=== PATIENT | male | born 1995 | race Two or more races ===

== ENCOUNTER 2024-09-13 08:06 | Outpatient (RCR) | payer SELFPAY ==
--- NOTE | 2024-09-13 08:39 | PC.NURSE ---
PHP staff Latia assessed Marino this morning for PHP LOC. She reports he is severely depressed, disclosed HI towards former partner and SI with plan to stab himself. There is an ongoing court issues and there is restraining orders on both he and his partner. He is agreeable to getting evaluated by crisis. Latia is currently escorting Marino to [facility] for evaluation. Candis RN in the POD is aware. Jenni from the Care Team is aware.
--- NOTE | 2024-09-13 09:46 | HO.PHP ---
This literary writer met with the patient today 09/13/2024 for the purpose of completing the intake assessment for PHP treatment. The patient reports experiencing severe depression and anxiety since . During the intake,the patient disclosed that he has been experiencing suicidal ideation,with a plan but no intent,he also disclosed homicidal ideation with a plan but no intent towards his former partner who he has had ongoing legal issues,restraining orders since May 2024. We discussed this at length,this literary writer stated to the patient that this literary writer thinks he is at high risk and recommend a crisis evaluation.The patient agreed to have a crisis evaluation. This literary writer discussed this patient with the PHP RN,she contacted the ED to discuss this patient and to inform them he will be coming in for a crisis evaluation. This literary writer walked the patient to the [facility] for a crisis evaluation. [facility]
== END 2024-09-13 08:47 | disposition home or self-care (01) ==
LOC: HO.PHPA 08:06
PROVIDERS: Visit Provider Psychiatry & Neurology Psychiatry
DX: F32.A Depression, unspecified (principal)

== ENCOUNTER 2024-09-13 08:45 | Inpatient (IN) | payer OTHER, SELFPAY ==
[2024-09-13 08:49] VITALS: BP 131/75; PULSE 88; RESP 16; TEMP 36.6; O2SAT 100; BMI 26.0
--- NOTE | 2024-09-13 09:13 | ED_ITS ---
HPI - General Adult General Chief complaint: Psychiatric Symptoms Stated complaint: Crisis Time Seen by Provider: 09/13/24 09:13 Source: patient Mode of arrival: ambulatory Limitations: no limitations History of Present Illness ED Provider: Karen Calzada PA-C HPI narrative: Patient is a 29 year old assigned male at with a history of depression presenting to the emergency department today with increased suicidal ideation. Patient states that he has been feeling much more suicidal over the last few days. Patient states that he wanted to do a partial program but when he told them he was feeling suicidal, they had him come here. Patient denies any dizziness, lightheadedness, abdominal pain, nausea, vomiting, fever, chills, blurry vision, double vision, loss of vision, chest pain, difficulty breathing, shortness of breath, back pain, night sweats, pain with urination, increased urinary frequency, increased urinary urgency, blood in his urine or stool, syncope or a near syncopal episode, recent trauma or falls, bowel incontinence, bladder incontinence, or any other complaints at this time. Relieving factors: none Exacerbating factors: none Associated symptoms: denies other symptoms Treatments prior to arrival: none Related Data Home Medications ?Medication ?Instructions ?Recorded ?Confirmed No Known Home Meds 09/13/24 09/13/24 Allergies Allergy/AdvReac Type Severity Reaction Status Date / Time No Known Allergies Allergy Verified 09/13/24 08:49 Review of Systems 2 Constitutional: Constitutional: Reports no additional constitutional complaints, Denies chills, Denies fever(s) and Denies night sweats Eyes: Eyes: Reports no additional eye complaints, Denies blurry vision, Denies change in vision, Denies diplopia, Denies eye discharge, Denies loss of vision and Denies eye pain ENT: Denies dizziness Cardiovascular: Cardiovascular: Reports no additional cardiovascular complaints, Denies chest pain, Denies lightheadedness, Denies Loss of Consciousness and Denies dyspnea Respiratory: Respiratory: Reports no additional respiratory complaints and Denies dyspnea Gastrointestinal: Gastrointestinal: Reports no additional gastrointestinal complaints, Denies abdominal pain, Denies melena, Denies hematochezia, Denies change in bowel habits and Denies change in stool character Genitourinary: Genitourinary: Reports no additional male genitourinary complaints, Denies hematuria, Denies oliguria, Denies difficulty urinating, Denies dysuria, Denies urinary frequency, Denies urinary hesitancy, Denies urinary incontinence and Denies urinary urgency Musculoskeletal: Musculoskeletal: Reports no additional musculoskeletal complaints, Denies numbness and Denies tingling Neurologic: Denies dizziness, Denies loss of vision, Denies numbness and Denies tingling Psychiatric: Psychiatric: Reports no additional psychiatric complaints and Reports suicidal ideation Endocrine: Endocrine: Reports no additional endocrine complaints Hematologic/Lymphatic: Hematologic/Lymphatic: Reports no additional hematologic/lymphatic complaints Allergic/Immunologic: Allergic/Immunologic: Reports no additional allergic/immunologic complaints [facility] Past Medical History Attestation statement: The following information was validated with the patient. Source: old records reviewed and nursing notes reviewed Social History Social History Alcohol intake: current Alcohol intake frequency: holidays/special occasions only Smoked in Last 30 Days: Yes Use of substances other than those prescribed or required for medical reasons: No Advance Directives: No Advance Directives Information Provided: No Do you have a plan to hurt others: Vague Physical Exam ED Vital Signs: Vital Signs - 24 hr 09/13/24 08:49 09/13/24 09:18 Temperature 97.8 F Pulse Rate 88 Respiratory Rate 16 16 Blood Pressure 131/75 Pulse Oximetry 100 Oxygen Delivery Method Room Air BMI result Body Mass Index 26.0 Const General: cooperative, no acute distress, alert and awake Nutritional Appearance: well nourished Orientation/consciousness: patient oriented x3 Limitations: no limitations HENMT Head: Yes normal to inspection and Yes atraumatic Ears: hearing grossly normal bilaterally and external ears normal General nose exam: Normal external nose present, no nasal discharge noted and no epistaxis Face and sinus: Yes normal facial exam, No abrasion and No laceration Mouth: Normal oral and palatal mucosa present, no drooling and no muffled voice Eyes General: appearance normal, both eyes and all related structures Periorbital: periorbital findings normal Eyelids: Yes eyelids normal Conjunctivae: conjunctivae normal Pupils: Equal, round and reactive pupils present EOM: EOMs intact bilaterally Neck Neck: Yes normal visual inspection, Yes full ROM and Yes no lymphadenopathy Chest Chest palpation & inspection: normal inspection of the chest Resp Effort & Inspection: normal respiratory effort and able to speak in complete sentences GI Inspection: Yes normal to inspection Neuro General: patient oriented x3 and moves all extremities Cranial nerves: Yes Equal, round and reactive pupils present Cognition (Neuro): normal cognition Extrem General: Yes normal to inspection, Yes full ROM and Yes capillary refill normal Psych Appearance: grossly normal Mental Status: mental status grossly normal Affect: Sad affect present Attitude: Guarded attititude/behavior present Thought content: Suicidality present Medical Decision Making Medical Decision Making MDM Narrative: Patient is a 29 year old assigned male at with a history of depression presenting to the emergency department today with suicidal ideation. Patient's physical exam was as noted in the physical exam portion of this note. Patient's blood work was unremarkable. Patient's urine showed no acute process. I explained my physical exam findings as well as all test results to the patient. I answered all questions asked by the patient. Patient met with the CARE team who recommended inpatient level of psychiatric care. Patient to be admitted here at [facility] for continued psychiatric care. Observation ended at 1300 on 09/13/2024 as the patient will be admitted for continued psychiatric care. Differential Diagnosis Differential Diagnoses: The differential diagnosis associated with the presentation includes Depression Suicidal ideation Admission/Observation Consideration of admission/observation: Escalation of care including admission/observation considered Patient to be admitted to the psychiatric service. Consult Healthcare Provider Management of the patient was discussed with: Behavioral Health Provider (spoke to the CARE team as noted in the MDM Rationale portion of this note.) Lab Data [facility] Lab Attestation statement: I reviewed the patient's lab results. My interpretation of these results are in the MDM Rationale portion of this note. 09/13/24 09:49 09/13/24 09:49 Labs: Lab Results 09/13/24 09/13/24 Range/Units 09:20 09:49 WBC 6.6 (4.8-10.8) X10*3/uL RBC 5.16 (4.60-5.80) X10*6/uL Hgb 15.3 (14.0-18.0) g/dl Hct 44.6 (42.0-52.0) % MCV 86.4 (80.0-98.0) fL MCH 29.7 (27.0-33.0) pg MCHC 34.3 (31.0-36.0) g/dl RDW 12.5 (11.0-16.0) % Plt Count 211 (160-400) X10*3/uL MPV 10.9 (9.4-12.4) fL Immature Gran % (Auto) 0.2 (0.0-0.4) % Neut % (Auto) 63.2 (45-73) % Lymph % (Auto) 21.4 (20-40) % [place] % (Auto) 9.6 (2-11) % Eos % (Auto) 5.0 H (0-4) % Baso % (Auto) 0.6 (0-2) % Lymph # (Auto) 1.4 (1.2-4.9) X10*3/uL [place] # (Auto) 0.6 (0.1-1.2) X10*3/uL Eos # (Auto) 0.3 (0.0-0.4) X10*3/uL Baso # (Auto) 0.0 (0.0-0.2) X10*3/uL Abs Immat Gran (auto) 0.01 (0.00-0.03) X10*3/uL Absolute Neuts (auto) 4.2 (2.0-8.3) x10*3/uL Absolute Nucleated RBC 0.000 (0.0-0.012) X10*3/uL Nucleated RBC % (auto) 0.0 (0.0-0.2) /100WBC Sodium 140 (135-145) mmol/L Potassium 3.9 (3.3-5.1) mmol/L Chloride 106 (96-108) mmol/L Carbon Dioxide 27 (22-29) mmol/L Anion Gap 11 L (12-20) BUN 11 (9-16) mg/dL Creatinine 0.84 (0.5-1.4) mg/dL Estim Creat Clear Calc 131.5 Estimated GFR > 60 Random Glucose 93 (60-115) mg/dL Calcium 9.6 (8.4-10.2) mg/dL Total Bilirubin 0.3 (0.0-1.0) mg/dL AST 21 (5-37) U/L ALT 42 H (0-40) U/L Alkaline Phosphatase 90 (39-117) U/L Total Protein 7.5 (6.5-8.0) g/dL Albumin 4.4 (3.5-5.0) g/dL Urine Color Yellow Urine Appearance Clear Urine pH 5.5 (5.0-9.0) Ur Specific [place] 1.020 (1.005-1.025) Urine Protein Negative (Neg-Trace) mg/dL Urine Glucose (UA) Negative (Negative) mg/dL Urine Ketones Negative (Negative) mg/dL Urine Blood Trace H (Negative) Urine Nitrite Negative (Negative) Ur Leukocyte Esterase Trace H (Negative) Urine RBC 3-5 H (0-2) /HPF Urine WBC 0-5 (0-5) /HPF Ur Squamous Epith Cells 0-2 (0-2) /HPF Urine Bacteria None Seen (None Seen) Hyaline Casts 0-2 (0-2) /LPF Urine Opiates Screen Not Detected (Not Detect) Ur Buprenorphine Scrn Not Detected (Not Detect) ng/mL Ur Oxycodone Screen Not Detected (Not Detect) ng/mL Urine Methadone Screen Not Detected (Not Detect) ng/mL Urine Fentanyl Screen Not Detected (Not Detect) Ur Barbiturates Screen Not Detected (Not Detect) Ur Phencyclidine Scrn Not Detected (Not Detect) Ur Amphetamines Screen Not Detected (Not Detect) U Benzodiazepines Scrn Not Detected (Not Detect) Urine Cocaine Screen Not Detected (Not Detect) U Marijuana (THC) Screen Not Detected (Not Detect) Ethyl Alcohol < 10 mg/dL Critical Care Time Critical Care Time Critical Care Time: Yes Total Critical Care Time: 34 Attestation: I spent 34 minutes of Critical Care Time with this patient. This does not include time spent on separately reported billable procedures. Discharge Plan Discharge Clinical Impression: Depression, Suicidal ideation Patient Disposition: Admitted As Inpatient Prescriptions: No Action No Known Home Meds Interventions: [place]-Suicide Risk Severity Scale Last Done: 09/13/24 09:18 Print Language: Tajik
[2024-09-13 09:18] VITALS: RESP 16
--- NOTE | 2024-09-13 09:19 | PC.NURSE ---
Pt changed over, calm and cooperative, offering no complaints. Pt endorses SI with a plan to stab himself and HI without plan towards his ex partner. Pt provided with snacks and liquids per request. Now resting in room, no apparent distress noted
[2024-09-13 09:27] LABS: Appearance Urine Clear; Color Urine Yellow; Glucose Urine UA Negative (Negative); Leukocyte Esterase Urine Trace (Negative); Nitrite Urine Negative (Negative); PH 5.5 (5.0-9.0); UMIC TRIGGER UACC YES; Urine Blood Trace (Negative); Urine Ketones Negative (Negative); Urine Protein Negative (Neg-Trace)
[2024-09-13 09:31] LABS: Bacteria Urine None Seen (None Seen); Hyaline Casts Urine 0-2 /LPF (0-2); Squamous Epithelial Cell Urine 0-2 /HPF (0-2); WBC Urine 0-5 /HPF (0-5)
[2024-09-13 09:39] LABS: Amphetamine Screen Urine Not Detected (Not Detect); Barbiturates, Urine Not Detected (Not Detect); Benzodiazepines Screen Urine Not Detected (Not Detect); Buprenorphine Scr Not Detected (Not Detect); Cannabinoid Screen Urine Not Detected (Not Detect); Cocaine Screen Urine Not Detected (Not Detect); Fentanyl, urine Not Detected (Not Detect); Methadone Screen, Urine Not Detected (Not Detect); Opiate Screen Urine Not Detected (Not Detect); Oxycodone Screen Urine Not Detected (Not Detect); Phencyclidine Screen Urine Not Detected (Not Detect)
[2024-09-13 09:55] LABS: Basophils Percent Auto 0.6 % (0-2); Eosinophils Absolute Auto 0.3 X10*3/uL (0.0-0.4); Hematocrit 44.6 % (42.0-52.0); Hemoglobin 15.3 g/dl (14.0-18.0); Imm Gran Abs Auto 0.01 X10*3/uL (0.00-0.03); Imm Gran Pct Auto 0.2 % (0.0-0.4); Lymphocytes Absolute Auto 1.4 X10*3/uL (1.2-4.9); Lymphocytes Percent Auto 21.4 % (20-40); MANUAL DIFF FLAG NO; Mean Corpuscular HGB Conc 34.3 g/dl (31.0-36.0); Mean Corpuscular Hemoglobin 29.7 pg (27.0-33.0); Mean Corpuscular Volume 86.4 fL (80.0-98.0); Mean Platelet Volume 10.9 fL (9.4-12.4); Monocytes Absolute Auto 0.6 X10*3/uL (0.1-1.2); Monocytes Percent Auto 9.6 % (2-11); Neutrophils Absolute Auto 4.2 x10*3/uL (2.0-8.3); Neutrophils Percent Auto 63.2 % (45-73); Platelet Count 211 X10*3/uL (160-400); Red Blood Count 5.16 X10*6/uL (4.60-5.80); Red Cell Distribution Width 12.5 % (11.0-16.0); White Blood Count 6.6 X10*3/uL (4.8-10.8)
[2024-09-13 10:09] LABS: Alanine Aminotransferase 42 U/L (0-40); Albumin Level 4.4 g/dL (3.5-5.0); Alkaline Phosphatase 90 U/L (39-117); Anion Gap 11 (12-20); Aspartate Amino Transferase 21 U/L (5-37); Bilirubin Total 0.3 mg/dL (0.0-1.0); Blood Urea Nitrogen 11 mg/dL (9-16); Calcium 9.6 mg/dL (8.4-10.2); Carbon Dioxide 27 mmol/L (22-29); Chloride 106 mmol/L (96-108); Creatinine Clr Calc Pharmacy 131.5; Estimated Glomerular Filt Rate > 60; Ethanol < 10 mg/dL; Glucose Random 93 mg/dL (60-115); Potassium 3.9 mmol/L (3.3-5.1); Sodium 140 mmol/L (135-145); Total Protein 7.5 g/dL (6.5-8.0)
[2024-09-13 17:11] VITALS: BP 125/84; PULSE 59; RESP 16; TEMP 36.8; O2SAT 100
[2024-09-13 17:55] VITALS: BMI 25.7
--- NOTE | 2024-09-13 17:56 | PC.ADMIT ---
Marino Bo ( Edvin ) is a 29-year-old male admitted from [facility] to [facility] on a CV for treatment of unspecified depressive d/o. Tox screen negative. Skin check unremarkable. Pt initially presented to [facility] with the hopes of being set up with a psychiatrist and be prescribed medication. Per crisis eval, pt was endorsing feelings of SI with plan to stab himself. He also endorsed HI towards his ex partner. Pt adamantly denies this and says I had those feelings a few months ago when my ex and I filed restraining orders against each other in May but I don't have those feelings anymore. I was just telling the people at [facility] how I used to feel but that's not how I'm feeling right now. Pt is currently on probation and has an ankle monitor. Upon admission to M3, pt was alert and oriented x3, pleasant and cooperative despite wanting to be discharged today. RN told pt that he would not be leaving tonight and he verbalized understanding. RN encouraged pt to sign a 3 day but he declined because it won't be up until next Wednesday and I'm not going to stay here for 5 days. Pt's speech was quiet, eye contact avoidant at times. Pt reports I sometimes sleep too much but I think that's just part of the depression. Pt reports no issues with appetite. Pt denies SI/HI/AH/VH but will reach out to staff if thoughts occur. Pt placed on 15 minute safety checks.
--- NOTE | 2024-09-13 18:05 | PC.NURSE ---
Pt declined flu vaccine, already immunized this season.
[2024-09-13] MEDS: hydrOXYzine HCL 25 MG TABLET PO (20:46)
[2024-09-13] MEDS: traZODone HCL 50 MG TABLET PO (20:46)
[2024-09-13 21:00] VITALS: BP 130/73; PULSE 91; RESP 16; TEMP 36.6; O2SAT 97
[2024-09-13] MEDS: Nicotine Polacrilex Lozenge 2 MG LOZENGE BUCCAL (21:31)
[2024-09-14] MEDS: Nicotine 21 MG PATCH.TD24 TRANSDERMA (06:56)
[2024-09-14] MEDS: Nicotine Polacrilex Lozenge 2 MG LOZENGE BUCCAL ×8 (06:57→21:55)
[2024-09-14 07:00] VITALS: BMI 25.8
[2024-09-14 07:43] VITALS: BP 113/72; PULSE 94; RESP 14; TEMP 36.9; O2SAT 98
--- NOTE | 2024-09-14 08:03 | HO.PSYADMNOT ---
[facility] Date of Service: 09/14/24 Chief Complaint: Crisis Sources of Information: patient interviewed, chart reviewed and crisis/core team assessment reviewed [facility] Subjective Notes: Jenkins Warning and Conditional Voluntary Narrative: Patient is a 29-year-old male with history of MDD and PTSD who presented to [facility] [place] the [facility] program due to endorsing suicidal ideation with plan to stab himself and homicidal ideation towards his ex partner. Per crisis report, patient was sent over to ER from [facility] due to endorsing feelings of SI with a plan to stab himself during intake. He also reported having homicidal ideation towards his ex partner. Patient stated, I want to do it but I know that I shouldn't . Patient reports decreased appetite, loss of employment, sleeping 12-14 hours a day and increased depression since May. He reports legal issues related to his ex partner. Per crisis report, patient's mother is concerned that patient may harm himself due to making daily suicidal statements. Patient denies ever being prescribed psychiatric medication. Denies any substance use. Utox negative. During admission assessment, patient presents alert and oriented x3. Calm and cooperative. Patient stated, my therapist recommended for me to go to [facility]. I'm not having thoughts of hurting myself or my ex partner, I was having those in May. Now I'm just anxious . Patient denies SI/HI/VH/AH. Patient reports he has been trying to keep his mind busy to not feel suicidal or homicidal . Patient stated, I go to work, school and mosque to keep busy . Patient reports that he does not take any psychiatric medication nor is he interested in taking any. denies history of SIB/SA. Past Psychiatric History: Patient reports this is his 1st inpatient psychiatric hospitalization. Therapist through [facility] in [place], [place]. Does not have outpatient prescriber. Is not prescribed any psychiatric medications. Denies history of SA/SIB. Medical Evaluation Reviewed: Yes [facility] Family History: denies Social History: lives with his mother, single, no kids, works fulltime at [employer] degree Substance History: denies Trauma History: yes Diagnostics Vital Signs (24Hr): Vital Signs - 24 hr 09/13/24 08:49 09/13/24 09:18 09/13/24 17:11 Temperature 97.8 F 98.2 F Pulse Rate 88 59 Respiratory Rate 16 16 16 Blood Pressure 131/75 125/84 Pulse Oximetry 100 100 Oxygen Delivery Method Room Air Room Air 09/13/24 21:00 09/14/24 07:43 Temperature 97.9 F 98.4 F Pulse Rate 91 94 Respiratory Rate 16 14 Blood Pressure 130/73 113/72 Pulse Oximetry 97 98 Oxygen Delivery Method Room Air Room Air BMI result Body Mass Index 25.7 Labs 09/13/24 09:49 09/14/24 07:38 Labs: Laboratory Results - last 48 hr 09/13/24 09/13/24 09:20 09:49 WBC 6.6 RBC 5.16 Hgb 15.3 Hct 44.6 MCV 86.4 MCH 29.7 MCHC 34.3 RDW 12.5 Plt Count 211 MPV 10.9 Immature Gran % (Auto) 0.2 Neut % (Auto) 63.2 Lymph % (Auto) 21.4 [place] % (Auto) 9.6 Eos % (Auto) 5.0 H Baso % (Auto) 0.6 Lymph # (Auto) 1.4 [place] # (Auto) 0.6 Eos # (Auto) 0.3 Baso # (Auto) 0.0 Abs Immat Gran (auto) 0.01 Absolute Neuts (auto) 4.2 Absolute Nucleated RBC 0.000 Nucleated RBC % (auto) 0.0 Sodium 140 Potassium 3.9 Chloride 106 Carbon Dioxide 27 Anion Gap 11 L BUN 11 Creatinine 0.84 Estim Creat Clear Calc 131.5 Estimated GFR > 60 Random Glucose 93 Calcium 9.6 Total Bilirubin 0.3 AST 21 ALT 42 H Alkaline Phosphatase 90 Total Protein 7.5 Albumin 4.4 Urine Color Yellow Urine Appearance Clear Urine pH 5.5 Ur Specific [place] 1.020 Urine Protein Negative Urine Glucose (UA) Negative Urine Ketones Negative Urine Blood Trace H Urine Nitrite Negative Ur Leukocyte Esterase Trace H Urine RBC 3-5 H Urine WBC 0-5 Ur Squamous Epith Cells 0-2 Urine Bacteria None Seen Hyaline Casts 0-2 Urine Opiates Screen Not Detected Ur Buprenorphine Scrn Not Detected Ur Oxycodone Screen Not Detected Urine Methadone Screen Not Detected Urine Fentanyl Screen Not Detected Ur Barbiturates Screen Not Detected Ur Phencyclidine Scrn Not Detected Ur Amphetamines Screen Not Detected U Benzodiazepines Scrn Not Detected Urine Cocaine Screen Not Detected U Marijuana (THC) Screen Not Detected Ethyl Alcohol < 10 Meds/Allergies Meds Home Medications ?Medication ?Instructions ?Recorded ?Confirmed ?Type No Known Home Meds 09/13/24 09/13/24 History Allergies Allergies Allergy/AdvReac Type Severity Reaction Status Date / Time No Known Allergies Allergy Verified 09/13/24 08:49 Mental Status Exam Mental Status Exam Narrative: Pt is alert and oriented; behavior is cooperative; dressed in casual attire; mood is described as anxious ; eye contact appropriate; Speech is normal rate, volume and not pressured; thought process is organized; Thought content is on tx; denies SI/HI/VH/AH. Assessment & Plan Assessment & Plan (1) MDD (major depressive disorder), recurrent episode, severe: Status: Acute Code(s): F33.2 - Major depressive disorder, recurrent severe without psychotic features (2) PTSD (post-traumatic stress disorder): Status: Acute Code(s): F43.10 - Post-traumatic stress disorder, unspecified Plan Patient is a 29-year-old male with history of MDD and PTSD who presented to [facility] [place] the [facility] program due to endorsing suicidal ideation with plan to stab himself and homicidal ideation towards his ex partner. Plan: CV 15 minute safety checks obtain collateral encourage groups referral to return to [facility] discharge planning Patient educated on: diagnosis and medication risk/benefits Reason for continued inpatient stay Substantial Risk for: med/psych decompensation Statement Statement: I have reviewed the history and physical and performed a pertinent examination on my patient. No changes have occurred unless specified. If the History and Physical was not performed prior to admission, the Hospitalist's service will be consulted for completing the admission physical. Time Spent With Patient Time: Total time managing care of this patient today _60___ minutes.
[2024-09-14 08:42] LABS: Albumin Level 4.5 g/dL (3.5-5.0); Alkaline Phosphatase 85 U/L (39-117); Anion Gap 15 (12-20); Aspartate Amino Transferase 19 U/L (5-37); Bilirubin Total 0.4 mg/dL (0.0-1.0); Blood Urea Nitrogen 9 mg/dL (9-16); Calcium 9.4 mg/dL (8.4-10.2); Carbon Dioxide 24 mmol/L (22-29); Chloride 107 mmol/L (96-108); Cholesterol 187 mg/dL (<200); Creatinine Clr Calc Pharmacy 115.1; Estimated Glomerular Filt Rate > 60; Glucose Fasting 94 mg/dL (60-99); HDL Cholesterol 44 mg/dL (>40); LDL Cholesterol Calculated 128 mg/dL (<100); Potassium 4.1 mmol/L (3.3-5.1); Sodium 142 mmol/L (135-145); Total Protein 7.7 g/dL (6.5-8.0); Triglycerides 78 mg/dL (<150)
[2024-09-14 09:02] LABS: Alanine Aminotransferase 36 U/L (0-40)
[2024-09-14] MEDS: hydrOXYzine HCL 25 MG TABLET PO (11:22)
[2024-09-14 20:00] VITALS: BP 118/59; PULSE 89; RESP 18; TEMP 36.9; O2SAT 99
[2024-09-14] MEDS: Melatonin 3 MG TABLET 6 MG PO (21:52)
[2024-09-15 07:15] VITALS: BP 118/80; PULSE 91; RESP 14; TEMP 37; O2SAT 99
[2024-09-15] MEDS: hydrOXYzine HCL 25 MG TABLET PO ×3 (07:23→21:28)
[2024-09-15] MEDS: Nicotine Polacrilex Lozenge 2 MG LOZENGE BUCCAL ×8 (07:23→21:35)
[2024-09-15] MEDS: Nicotine 21 MG PATCH.TD24 TRANSDERMA (09:17)
--- NOTE | 2024-09-15 13:08 | P.PNPSI_ITS ---
Subjective Subjective Date of Service: 09/15/24 Reason For Visit: Crisis Subjective Notes: Conditional Voluntary Healthcare Proxy: No Guardianship: No Medical Problems Affecting Mental Status: No Interim History: pt has been calm cooperative asking to be d/c. Spoke with pts mother who stated he had some anxiety talked at times of si but no plan no action. Pt states he was much worse in may and has had no real plan for Harming his ex or himself. States he can maintain his safety and is in college hoping to return to class. 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 [facility] Mental Status Exam Mental Status Exam Narrative: Patient tense in appearance good eye contact Patient Appearance: Well Grooomed Patient Orientation: Person, Place, Time and Situation Level of Consciousness: Awake and Appropriate Mood Description: Depressed and Blunted Affect Description: Constricted and Apprehensive Patient Cognition Impaired: No Ability to Follow Directions: Good Speech Pattern: Clear Memory Description: Intact Hallucinations: None Delusions: Not Present Thought Process: Intact and Goal Oriented Thought Content: positive for Goal Oriented, positive for Preoccupation, positive for Suicidal Ideation (Has had thoughts with no plan denies plan or intent) and positive for Homicidal Ideation (Has had fantasies denies any plan or intent) Depressive Symptoms: Increased Anxiety, Insomnia, Increased Irritability, Increased Fatigue, Loss of Energy and Difficulty Concentrating Judgement: Fair Diagnostics Vital Signs (24Hr): Vital Signs - 24 hr 09/14/24 20:00 09/15/24 07:15 Temperature 98.5 F 98.6 F Pulse Rate 89 91 Respiratory Rate 18 14 Blood Pressure 118/59 L 118/80 Pulse Oximetry 99 99 Oxygen Delivery Method Room Air Room Air BMI result Body Mass Index 25.8 Labs 09/13/24 09:49 09/14/24 07:38 Labs: Laboratory Results - last 48 hr 09/14/24 07:38 Sodium 142 Potassium 4.1 Chloride 107 Carbon Dioxide 24 Anion Gap 15 BUN 9 Creatinine 0.96 Estim Creat Clear Calc 115.1 Estimated GFR > 60 Fasting Glucose 94 Calcium 9.4 Total Bilirubin 0.4 AST 19 ALT 36 Alkaline Phosphatase 85 Total Protein 7.7 Albumin 4.5 Triglycerides 78 Cholesterol 187 LDL Cholesterol, Calc 128 H HDL Cholesterol 44 Medications Medications Current Medications Acetaminophen (Acetaminophen 325 Mg Tablet) 650 mg PO Q6H PRN PRN Reason: Headache/Pain Mild Scale (1-3) Al Hydroxide/Mg Hydroxide (Magnesium Hydrox/Alum Hydrox 30 Ml Oral.Susp) 30 ml PO Q6H PRN PRN Reason: Heartburn/Nausea Hydroxyzine HCl (Hydroxyzine Hcl 25 Mg Tablet) 25 mg PO Q6H PRN PRN Reason: Anxiety Last Admin: 09/15/24 07:23 Dose: 25 mg Magnesium Hydroxide (Milk Of Magnesia 30 Ml Oral.Susp) 30 ml PO DAILY PRN PRN Reason: Constipation Melatonin (Melatonin 3 Mg Tablet) 6 mg PO BEDTIME PRN PRN Reason: Insomnia Last Admin: 09/14/24 21:52 Dose: 6 mg Nicotine (Nicotine 21 Mg Patch.Td24) 21 mg TRANSDERMA DAILY JIMBO Last Admin: 09/15/24 09:17 Dose: 21 mg Nicotine Polacrilex (Nicotine Polacrilex Lozenge 2 Mg Lozenge) 2 mg BUCCAL Q2H PRN PRN Reason: Nicotine Cravings Last Admin: 09/15/24 11:31 Dose: 2 mg Trazodone HCl (Trazodone Hcl 50 Mg Tablet) 50 mg PO BEDTIME MRX1 PRN PRN Reason: Insomnia Last Admin: 09/13/24 20:46 Dose: 50 mg Allergies Allergies Allergy/AdvReac Type Severity Reaction Status Date / Time No Known Allergies Allergy Verified 09/13/24 08:49 Assessment & Plan Assessment & Plan (1) MDD (major depressive disorder), recurrent episode, severe: Status: Acute Code(s): F33.2 - Major depressive disorder, recurrent severe without psychotic features (2) PTSD (post-traumatic stress disorder): Status: Acute Code(s): F43.10 - Post-traumatic stress disorder, unspecified Plan Patient is a 29-year-old male with history of MDD and PTSD who presented to [facility] from the [facility] program due to endorsing suicidal ideation with plan to stab himself and homicidal ideation towards his ex partner. Plan: CV 15 minute safety checks obtain collateral encourage groups referral to return to [facility] discharge planning 09/15/2024 Patient depressed and anxious what appears to be significant PTSD denying any active thoughts of harm to self or his ex. He stated of months ago he had had more intense thoughts but does not feel that way now. Has talked intermittently with his mom that at times he has had felt like he would be better off the stress of court but denies that he would ever act on this and states in general he has been feeling better. Patient is agreeable to mirtazapine 7.5 mg at bedtime for insomnia anxiety depressive symptoms. 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
[2024-09-15] MEDS: Hydrocortisone 1 % Cream 28.35 GM TUBE 1 APPL TOPICAL (17:42)
[2024-09-15 20:00] VITALS: BP 132/82; PULSE 103; RESP 16; TEMP 36.8; O2SAT 99
[2024-09-15] MEDS: Melatonin 3 MG TABLET 6 MG PO (21:28)
[2024-09-15] MEDS: Mirtazapine 7.5 MG TABLET PO ×2 (21:28→21:29)
[2024-09-16 07:45] VITALS: BP 118/70; PULSE 82; RESP 16; TEMP 37.2; O2SAT 99
[2024-09-16] MEDS: Nicotine 21 MG PATCH.TD24 TRANSDERMA (08:05)
[2024-09-16] MEDS: Acetaminophen 325 MG TABLET 650 MG PO (08:11)
[2024-09-16] MEDS: hydrOXYzine HCL 25 MG TABLET PO (08:41)
[2024-09-16] MEDS: Nicotine Polacrilex Lozenge 2 MG LOZENGE BUCCAL ×3 (08:41→12:58)
[2024-09-16] MEDS: Hydrocortisone 1 % Cream 28.35 GM TUBE 1 APPL TOPICAL (09:25)
[2024-09-16] MEDS: QUEtiapine Fumarate 25 MG TABLET PO (09:50)
--- NOTE | 2024-09-16 11:48 | P.DS_ITS ---
DS: Providers Provider Date of Service: 09/16/24 Date of admission: 09/13/24 13:00 Date of discharge: 09/16/24 Primary care physician: Unknown Physician Admitting clinician: Rosalva Blanco Attending physician on admission: Sameer Goodwin Attending physician on discharge: Sameer Goodwin DS: Diagnosis Discharge Diagnosis (1) MDD (major depressive disorder), recurrent episode, severe: Status: Acute (2) PTSD (post-traumatic stress disorder): Status: Acute DS: Medications Discharge Medications Home Medications: Previous Rx's ?Medication ?Instructions ?Recorded hydroxyzine HCl 25 mg tablet 25 mg PO Q6H PRN Anxiety 10 days 09/16/24 #20 tabs melatonin 5 mg tablet 5 mg PO BEDTIME PRN Insomnia 30 09/16/24 days #30 tabs mirtazapine 7.5 mg tablet 7.5 mg PO BEDTIME 20 days #20 tabs 09/16/24 prazosin 1 mg capsule 1 mg PO BEDTIME 10 days #10 caps 09/16/24 Mental Status Exam Mental Status Exam Narrative: pt again reassuring he can be safe in home situation and although at times has felt he would be better off this was more in the past as court and traumatic events were happening Patient Appearance: Well Grooomed Patient Orientation: Person, Place, Time and Situation Level of Consciousness: Awake and Appropriate Patient Behavior: Appropriate Mood Description: Depressed and Blunted Affect Description: Constricted and Apprehensive Patient Cognition Impaired: No Ability to Follow Directions: Good Speech Pattern: Clear Memory Description: Intact Hallucinations: None Delusions: Not Present Thought Process: Intact and Goal Oriented Thought Content: positive for Goal Oriented, positive for Preoccupation, negative for Suicidal Ideation or negative for Homicidal Ideation Depressive Symptoms: Increased Anxiety, Insomnia, Increased Irritability, Increased Fatigue, Loss of Energy and Difficulty Concentrating Judgement: Fair Judgement and Insight: denies any active thought sself harm states fantasies of harm to ex but would not act on them hopeful to put things in the past knows he needs help with this Data Data Completed and Pending Completed studies during hospitalization [Text1]: 09/13/24 09/13/24 09/14/24 09:20 09:49 07:38 WBC 6.6 RBC 5.16 Hgb 15.3 Hct 44.6 MCV 86.4 MCH 29.7 MCHC 34.3 RDW 12.5 Plt Count 211 MPV 10.9 Immature Gran % (Auto) 0.2 Neut % (Auto) 63.2 Lymph % (Auto) 21.4 [place] % (Auto) 9.6 Eos % (Auto) 5.0 H Baso % (Auto) 0.6 Lymph # (Auto) 1.4 [place] # (Auto) 0.6 Eos # (Auto) 0.3 Baso # (Auto) 0.0 Abs Immat Gran (auto) 0.01 Absolute Neuts (auto) 4.2 Absolute Nucleated RBC 0.000 Nucleated RBC % (auto) 0.0 Sodium 140 142 Potassium 3.9 4.1 Chloride 106 107 Carbon Dioxide 27 24 Anion Gap 11 L 15 BUN 11 9 Creatinine 0.84 0.96 Estim Creat Clear Calc 131.5 115.1 Estimated GFR > 60 > 60 Random Glucose 93 Fasting Glucose 94 Calcium 9.6 9.4 Total Bilirubin 0.3 0.4 AST 21 19 ALT 42 H 36 Alkaline Phosphatase 90 85 Total Protein 7.5 7.7 Albumin 4.4 4.5 Triglycerides 78 Cholesterol 187 LDL Cholesterol, Calc 128 H HDL Cholesterol 44 Urine Color Yellow Urine Appearance Clear Urine pH 5.5 Ur Specific [place] 1.020 Urine Protein Negative Urine Glucose (UA) Negative Urine Ketones Negative Urine Blood Trace H Urine Nitrite Negative Ur Leukocyte Esterase Trace H Urine RBC 3-5 H Urine WBC 0-5 Ur Squamous Epith Cells 0-2 Urine Bacteria None Seen Hyaline Casts 0-2 Urine Opiates Screen Not Detected Ur Buprenorphine Scrn Not Detected Ur Oxycodone Screen Not Detected Urine Methadone Screen Not Detected Urine Fentanyl Screen Not Detected Ur Barbiturates Screen Not Detected Ur Phencyclidine Scrn Not Detected Ur Amphetamines Screen Not Detected U Benzodiazepines Scrn Not Detected Urine Cocaine Screen Not Detected U Marijuana (THC) Screen Not Detected Ethyl Alcohol < 10 DS: Summary Hospital Course Hospital Course: [address] [address] Psychiatry Admission Note (In) Signed Patient: Marino Vasquez MR#: [id number] : 1995 Acct:[id number] Age/Sex: 29 / M Loc: [id number]: Uvaldo Torres MD cc: Sameer Goodwin MD; Rosalva Blanco NP~ HPI Date of Service: 09/14/24 Chief Complaint: Crisis Sources of Information: patient interviewed, chart reviewed and crisis/core team assessment reviewed HPI Subjective Notes: Jenkins Warning and Conditional Voluntary Narrative: Patient is a 29-year-old male with history of MDD and PTSD who presented to [facility] ER from the [facility] program due to endorsing suicidal ideation with plan to stab himself and homicidal ideation towards his ex partner. Per crisis report, patient was sent over to ER from [facility] due to endorsing feelings of SI with a plan to stab himself during intake. He also reported having homicidal ideation towards his ex partner. Patient stated, I want to do it but I know that I shouldn't . Patient reports decreased appetite, loss of employment, sleeping 12-14 hours a day and increased depression since May. He reports legal issues related to his ex partner. Per crisis report, patient's mother is concerned that patient may harm himself due to making daily suicidal statements. Patient denies ever being prescribed psychiatric medication. Denies any substance use. Utox negative. During admission assessment, patient presents alert and oriented x3. Calm and cooperative. Patient stated, my therapist recommended for me to go to [facility] I'm not having thoughts of hurting myself or my ex partner, I was having those in May. Now I'm just anxious . Patient denies SI/HI/VH/AH. Patient reports he has been trying to keep his mind busy to not feel suicidal or homicidal . Patient stated, I go to work, school and anglican to keep busy . Patient reports that he does not take any psychiatric medication nor is he interested in taking any. denies history of SIB/SA. Past Psychiatric History: Patient reports this is his 1st inpatient psychiatric hospitalization. [facility] in [place], [place]. Does not have outpatient prescriber. Is not prescribed any psychiatric medications. Denies history of SA/SIB. Medical Evaluation Reviewed: Yes [facility] Family History: denies Social History: lives with his mother, single, no kids, works fulltime at [employer]. Associates degree Substance History: denies Trauma History: yes Diagnostics Vital Signs (24Hr): Vital Signs - 24 hr 09/13/24 08:49 09/13/24 09:18 09/13/24 17:11 Temperature 97.8 F 98.2 F Pulse Rate 88 59 Respiratory Rate 16 16 16 Blood Pressure 131/75 125/84 Pulse Oximetry 100 100 Oxygen Delivery Method Room Air Room Air 09/13/24 21:00 09/14/24 07:43 Temperature 97.9 F 98.4 F Pulse Rate 91 94 Respiratory Rate 16 14 Blood Pressure 130/73 113/72 Pulse Oximetry 97 98 Oxygen Delivery Method Room Air Room Air BMI result Body Mass Index 25.7 Labs 09/13/24 09:49 document embedded image 09/14/24 07:38 document embedded image Labs: Laboratory Results - last 48 hr 09/13/24 09/13/24 09:20 09:49 WBC 6.6 RBC 5.16 Hgb 15.3 Hct 44.6 MCV 86.4 MCH 29.7 MCHC 34.3 RDW 12.5 Plt Count 211 MPV 10.9 Immature Gran % (Auto) 0.2 Neut % (Auto) 63.2 Lymph % (Auto) 21.4 [place] % (Auto) 9.6 Eos % (Auto) 5.0 H Baso % (Auto) 0.6 Lymph # (Auto) 1.4 [place] # (Auto) 0.6 Eos # (Auto) 0.3 Baso # (Auto) 0.0 Abs Immat Gran (auto) 0.01 Absolute Neuts (auto) 4.2 Absolute Nucleated RBC 0.000 Nucleated RBC % (auto) 0.0 Sodium 140 Potassium 3.9 Chloride 106 Carbon Dioxide 27 Anion Gap 11 L BUN 11 Creatinine 0.84 Estim Creat Clear Calc 131.5 Estimated GFR > 60 Random Glucose 93 Calcium 9.6 Total Bilirubin 0.3 AST 21 ALT 42 H Alkaline Phosphatase 90 Total Protein 7.5 Albumin 4.4 Urine Color Yellow Urine Appearance Clear Urine pH 5.5 Ur Specific [place] 1.020 Urine Protein Negative Urine Glucose (UA) Negative Urine Ketones Negative Urine Blood Trace H Urine Nitrite Negative Ur Leukocyte Esterase Trace H Urine RBC 3-5 H Urine WBC 0-5 Ur Squamous Epith Cells 0-2 Urine Bacteria None Seen Hyaline Casts 0-2 Urine Opiates Screen Not Detected Ur Buprenorphine Scrn Not Detected Ur Oxycodone Screen Not Detected Urine Methadone Screen Not Detected Urine Fentanyl Screen Not Detected Ur Barbiturates Screen Not Detected Ur Phencyclidine Scrn Not Detected Ur Amphetamines Screen Not Detected U Benzodiazepines Scrn Not Detected Urine Cocaine Screen Not Detected U Marijuana (THC) Screen Not Detected Ethyl Alcohol < 10 Meds/Allergies Meds Home Medications Medication Instructions Recorded Confirmed Type No Known Home Meds 09/13/24 09/13/24 History Allergies Allergies Allergy/AdvReac Type Severity Reaction Status Date / Time No Known Allergies Allergy Verified 09/13/24 08:49 Mental Status Exam Mental Status Exam Narrative: Pt is alert and oriented; behavior is cooperative; dressed in casual attire; mood is described as anxious ; eye contact appropriate; Speech is normal rate, volume and not pressured; thought process is organized; Thought content is on tx; denies SI/HI/VH/AH. Assessment & Plan Assessment & Plan (1) MDD (major depressive disorder), recurrent episode, severe: Status: Acute Code(s): F33.2 - Major depressive disorder, recurrent severe without psychotic features (2) PTSD (post-traumatic stress disorder): Status: Acute Code(s): F43.10 - Post-traumatic stress disorder, unspecified Plan Patient is a 29-year-old male with history of MDD and PTSD who presented to [facility] ER from the [facility] program due to endorsing suicidal ideation with plan to stab himself and homicidal ideation towards his ex partner. Plan: CV 15 minute safety checks obtain collateral encourage groups referral to return to [facility] discharge planning Patient educated on: diagnosis and medication risk/benefits Reason for continued inpatient stay Substantial Risk for: med/psych decompensation Statement Statement: I have reviewed the history and physical and performed a pertinent examination on my patient. No changes have occurred unless specified. If the History and Physical was not performed prior to admission, the Hospitalist's service will be consulted for completing the admission physical. Time Spent With Patient Time: Total time managing care of this patient today _60___ minutes. Dictated By: Rosalva Blacno NP Signed By: <Electronically signed by Rosalva Blanco> 09/14/24 1602 <Electronically signed by Sameer Goodwin MD> 09/15/242120 <Electronically signed by Sameer Goodwin MD> 09/15/242120 DD/ 2 TD/TT: 09/14/24802 Biostatistics Professor: HOSPITAL COURSE Pt was adm on a conditional vol was flat dysphoric stated he would not harm hiself and wished to cont in outpt tx . The pts mother felt the pt would not harm himself and was agreeable to help.Given mirtazapine prazosin for insomnia anxiety,pt agreeable to outpt tx pt was future oriented .Stated he would reach out if feeling unsafe did not want to leave his work and school structure. Has suicide hotline crisis numbers has good connection with his therapist. Status at Discharge Cognitive/behavioral status at discharge: pt flat dysphoric denies active si educated re ptsd and depression feels supported by literature Functional status at discharge: independent ambulation Overall status at discharge: patient is not back to baseline Time Spent with Patient Time attestation: Total time managing care of this patient today ____ minutes. Time spent: Greater than 30 minutes Discharge Plan Discharge Anticipated Discharge Date/Time: 09/16/24 11:40 Patient Disposition: Home, Self-Care Discharge Diagnosis: ptsd major depression Referrals: Psychiatry [Other] - 1 Week (*Please present to the clinic above, Wednesday through Wednesday during the hours of 8am and 8pm, in order to obtain outpatient mental health providers. *Please bring a photo ID and insurance card with you. ) [facility] [Provider Group] - 1 Week Physician,Jason J [Primary Care Provider] - 1 Week Discharge Medications: New mirtazapine 7.5 mg tablet 7.5 mg PO BEDTIME 20 Days Qty: 20 1RF Rx Instructions: 1 bedtime may repeat x 1 melatonin 5 mg tablet 5 mg PO BEDTIME PRN (Reason: Insomnia) 30 Days Qty: 30 0RF hydroxyzine HCl 25 mg Tablet 25 mg PO Q6H PRN (Reason: Anxiety) 10 Days Qty: 20 0RF prazosin 1 mg capsule 1 mg PO BEDTIME 10 Days Qty: 10 1RF quetiapine [Seroquel] 25 mg tablet 12.5 - 25 mg PO BID PRN (Reason: SEVERE ANXIETY) Qty: 14 1RF Discharge Orders: Discharge Order (Routine); Ordered 09/16/24 Ordered By: Sameer Goodwin Diet: Advance to usual diet Activity on Discharge: As tolerated Stand Alone Forms: Patient Portal Discharge page, Community Support Print Language: Ethiopian Care Plan Goals: STABILIZE MOOD AND ANXIETY NO SELF HARM Health Concerns: NO ACUTE MEDICAL PROBLEMS RECENT SI NO PLAN Plan of Treatment: COUNSELING WOULD RECONTACT PHP CALL DR GOODWIN OFFICE [phone] MON AM TO SET UP TRANSITION/BRIDGE APPT WITH HIM OR FELI BEY 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
--- NOTE | 2024-09-25 21:41 | P.DS_ITS ---
DS: Providers Provider Date of Service: 09/16/24 Date of admission: 09/13/24 13:00 Date of discharge: 09/16/24 Primary care physician: Unknown Physician Admitting clinician: Sameer Duggan Attending physician on discharge: Sameer Duggan DS: Diagnosis Discharge Diagnosis (1) MDD (major depressive disorder), recurrent episode, severe: Status: Acute (2) PTSD (post-traumatic stress disorder): Status: Acute DS: Medications Discharge Medications Home Medications: Previous Rx's ?Medication ?Instructions ?Recorded hydroxyzine HCl 25 mg tablet 25 mg PO Q6H PRN Anxiety 10 days 09/16/24 #20 tabs melatonin 5 mg tablet 5 mg PO BEDTIME PRN Insomnia 30 09/16/24 days #30 tabs mirtazapine 7.5 mg tablet 7.5 mg PO BEDTIME 20 days #20 tabs 09/16/24 prazosin 1 mg capsule 1 mg PO BEDTIME 10 days #10 caps 09/16/24 quetiapine 25 mg tablet (Seroquel) 12.5 - 25 mg (0.5 - 1 x 25 mg) PO 09/16/24 BID PRN SEVERE ANXIETY #14 tabs DS: Summary Hospital Course Hospital Course: Pt was adm on a conditional vol was flat dysphoric stated he would not harm hiself and wished to cont in outpt tx . The pts mother felt the pt would not harm himself and was agreeable to help. Time Spent with Patient Time attestation: Total time managing care of this patient today ____ minutes. Discharge Plan Discharge Anticipated Discharge Date/Time: 09/16/24 11:40 Patient Disposition: Home, Self-Care Discharge Diagnosis: ptsd major depression Referrals: Psychiatry [Other] - 1 Week (*Please present to the clinic above, Wednesday through Wednesday during the hours of 8am and 8pm, in order to obtain outpatient mental health providers. *Please bring a photo ID and insurance card with you. ) [facility] [Provider Group] - 1 Week Physician,Jason Cloud [Primary Care Provider] - 1 Week Discharge Medications: New mirtazapine 7.5 mg tablet 7.5 mg PO BEDTIME 20 Days Qty: 20 1RF Rx Instructions: 1 bedtime may repeat x 1 melatonin 5 mg tablet 5 mg PO BEDTIME PRN (Reason: Insomnia) 30 Days Qty: 30 0RF hydroxyzine HCl 25 mg Tablet 25 mg PO Q6H PRN (Reason: Anxiety) 10 Days Qty: 20 0RF prazosin 1 mg capsule 1 mg PO BEDTIME 10 Days Qty: 10 1RF quetiapine [Seroquel] 25 mg tablet 12.5 - 25 mg PO BID PRN (Reason: SEVERE ANXIETY) Qty: 14 1RF Discharge Orders: Discharge Order (Routine); Ordered 09/16/24 Ordered By: Sameer Duggan Diet: Advance to usual diet Activity on Discharge: As tolerated Stand Alone Forms: Patient Portal Discharge page, Community Support Print Language: Danish Care Plan Goals: STABILIZE MOOD AND ANXIETY NO SELF HARM Health Concerns: NO ACUTE MEDICAL PROBLEMS RECENT SI NO PLAN Plan of Treatment: COUNSELING WOULD RECONTACT PHP CALL DR DUGGAN OFFICE [phone] MON AM TO SET UP TRANSITION/BRIDGE APPT WITH HIM OR FELI BEY SUPERVISOR [facility]SE MEDICATION MIRTAZAPINE TAKE EVERY NITE FOR ANXIETY/PTSD/DEPRESSIVE SX SHOULD HELP WITH SLEEP CAN INC TO 2 PILLS BEDTIME PRAZOSIN 1 MG BEDTIME FOR SLEEP HELP WITH NIGHTMARES WITH PTSD HYDROXYZINE FOR ANXIETY NEEDED CALL [phone] IF NEEDED OR GO TO ER IF FEELING UNSAFE SUGGEST MEDITATION /PRAYER/RELAXATION BREATHING REGULAR EXERCISE Assessment: PT EDUCATED RE PTSD DEPRESSION SEEMS MORE GROUNDED FUTURE ORIENTED COOPERATIVE WITH CARE Discharge Date/Time: 09/16/24 13:43
== END 2024-09-16 13:43 | disposition home or self-care (01) | DRG 751 ==
LOC: HO.ED 14:03 → HO.PADLT16 16:36
PROVIDERS: Admitting Provider Registered Nurse; Emergency Provider Emergency Medicine Emergency Medical Services; Visit Provider Psychiatry & Neurology Psychiatry
DX: F33.2 Major depressive disorder, recurrent severe without psychotic features (principal); R45.851 Suicidal ideations; F43.10 Post-traumatic stress disorder, unspecified; Z79.899 Other long term (current) drug therapy
CPT/HCPCS: 36415; 80053; 80061; 80307; 81001; 85025; 99285; S9485

== ENCOUNTER → 2024-09-13 13:00 | Outpatient (BNV) | payer OTHER, SELFPAY | PROVIDERS: Admitting Provider Registered Nurse; Emergency Provider Emergency Medicine Emergency Medical Services; Visit Provider Registered Nurse | DX: F33.2 Major depressive disorder, recurrent severe without psychotic features (principal); F43.10 Post-traumatic stress disorder, unspecified | CPT/HCPCS: 90792 ==

== ENCOUNTER → 2024-09-13 13:00 | Outpatient (BNV) | payer OTHER, SELFPAY | PROVIDERS: Admitting Provider Registered Nurse; Emergency Provider Emergency Medicine Emergency Medical Services; Visit Provider Psychiatry & Neurology Psychiatry | DX: F33.2 Major depressive disorder, recurrent severe without psychotic features (principal); F43.11 Post-traumatic stress disorder, acute | CPT/HCPCS: 99232 ==